=== PATIENT | female | born 1975 ===

== ENCOUNTER 2024-09-14 10:12 | Emergency (ER) | payer BC, SELFPAY ==
--- NOTE | ~2024-09-14 | US_ITS ---
EXAMINATION: US PELVIS TRANSABDOMINAL AND TRANSVAGINAL HISTORY: lower abd pain COMPARISON: There are no prior studies for comparison. TECHNIQUE: Transabdominal and endovaginal real-time 2D francisco-scale ultrasound was performed. Color and pulsed Doppler evaluation of the bilateral ovarian arteries and veins was performed. FINDINGS: Uterus: The uterus is normal in size, measuring 9.1 x 5.3 x 7.2 cm. Myometrium has a normal echotexture. No fibroids are identified. Endometrium: The endometrial stripe measures 7 mm in thickness. Nabothian cysts are seen in the cervix. Right ovary: The right ovary measures 5.1 x 2.8 x 2.7 cm. Multiple follicles are noted, the largest of which measures 2.8 x 2.0 x 2.6 cm. Left ovary: The left ovary measures 4.4 x 2.1 x 3.1 cm. Multiple follicles are noted, the largest of which measures 2.2 x 1.9 x 2.7 cm. Normal color and pulse Doppler spectral waveforms are noted in the bilateral ovarian arteries and veins. Pelvic fluid: none. US/US pelvic and transvaginal IMPRESSION: Follicles are noted bilaterally. Normal vascular flow is seen to both ovaries. Electronically signed by: Mahamed Josue MD 09/14/2024 03:38 PM EDT
--- NOTE | ~2024-09-14 | CT_ITS ---
EXAMINATION: CT ABDOMEN PELVIS WITH IV CONTRAST HISTORY: white count, vomiting, lower abd pain COMPARISON: There are no prior studies for comparison. TECHNIQUE: CT scan of the abdomen and pelvis was performed following administration of 85 mL Omnipaque 350 using standard departmental protocol. Coronal and sagittal reformatted images were generated and reviewed. Oral contrast material was not administered at the request of the referring physician. This CT exam was performed with one or more of the following dose reduction techniques: automated exposure control, adjustment of the mA and/or kV according to patient size, use of iterative reconstruction technique. DLP: 698 mGy-cm FINDINGS: LOWER CHEST: The visualized lung bases are clear. There is no pleural effusion. CARDIOVASCULATURE: The heart is normal in size. There is no pericardial effusion. LIVER: The liver is normal in size and contour. No liver mass is identified. The hepatic and portal veins are patent. GALLBLADDER / BILE DUCTS: The gallbladder is surgically absent. There is no intra or extrahepatic biliary ductal dilatation. SPLEEN: The spleen is normal in size. No focal splenic lesion is identified. PANCREAS: The pancreas is unremarkable in appearance. ADRENAL GLANDS: Within normal limits. KIDNEYS/RETROPERITONEUM: No renal calculi are identified. There is no hydronephrosis. No renal masses are identified. LYMPH NODES: No abdominal or pelvic lymphadenopathy. VASCULATURE: The abdominal aorta is normal in caliber. MESENTERY/PERITONEUM: No free fluid. No masses. There is no free intraperitoneal gas. STOMACH: There is a moderate hiatal hernia. The remainder of the stomach is collapsed. SMALL BOWEL: The small bowel is normal in caliber. COLON: The ascending, transverse, and proximal descending colon are collapsed, which may explain mild wall thickening. There is diverticulosis of the distal descending and sigmoid colon, without evidence of diverticulitis. APPENDIX: Normal. URINARY BLADDER/PELVIC ORGANS: The urinary bladder is unremarkable. The uterus is unremarkable. There is a 4.2 x 2.2 cm right ovarian cyst and a 3.1 x 2.6 cm left ovarian cyst. BONES / SOFT TISSUES: There is degenerative disc disease at L4-5 and L5-S1. There is slight spondylolisthesis of L4 and L5. The patient is status post fusion of the left sacroiliac joint. CT/CT abdomen pelvis w IV con IMPRESSION: 1. Moderate hiatal hernia. 2. The ascending, transverse, and proximal descending colon are collapsed, which may explain mild wall thickening. Colitis is not entirely excluded. 3. Diverticulosis of the distal descending and sigmoid colon, without evidence of diverticulitis. 4. Bilateral ovarian cysts as described. This could be further evaluated with ultrasound. Electronically signed by: Mahamed Josue MD 09/14/2024 01:55 PM EDT
--- NOTE | ~2024-09-14 | US_ITS ---
EXAMINATION: US PELVIS TRANSABDOMINAL AND TRANSVAGINAL HISTORY: lower abd pain COMPARISON: There are no prior studies for comparison. TECHNIQUE: Transabdominal and endovaginal real-time 2D francisco-scale ultrasound was performed. Color and pulsed Doppler evaluation of the bilateral ovarian arteries and veins was performed. FINDINGS: Uterus: The uterus is normal in size, measuring 9.1 x 5.3 x 7.2 cm. Myometrium has a normal echotexture. No fibroids are identified. Endometrium: The endometrial stripe measures 7 mm in thickness. Nabothian cysts are seen in the cervix. Right ovary: The right ovary measures 5.1 x 2.8 x 2.7 cm. Multiple follicles are noted, the largest of which measures 2.8 x 2.0 x 2.6 cm. Left ovary: The left ovary measures 4.4 x 2.1 x 3.1 cm. Multiple follicles are noted, the largest of which measures 2.2 x 1.9 x 2.7 cm. Normal color and pulse Doppler spectral waveforms are noted in the bilateral ovarian arteries and veins. Pelvic fluid: none. US/US pelvic ovarian doppler IMPRESSION: Follicles are noted bilaterally. Normal vascular flow is seen to both ovaries. Electronically signed by: Mahamed Josue MD 09/14/2024 03:38 PM EDT
[2024-09-14 10:26] VITALS: BP 148/91; PULSE 64; O2SAT 100
[2024-09-14 10:31] VITALS: BP 145/80; PULSE 56; RESP 16; TEMP 36.4; O2SAT 100; BMI 36.3
--- NOTE | 2024-09-14 11:21 | ED_ITS ---
HPI - Abdominal Pain General Chief Complaint: Abdominal Pain Stated Complaint: NAUSEA,VOMITING X1 DAY PER EMS Time Seen by Provider: 09/14/24 10:39 Source: patient and EMS Mode of arrival: EMS Limitations: no limitations History of Present Illness ED Provider: TATIANA MEDINA PA-C HPI narrative: 49 year old female presents to the ED today for evaluation of nausea, vomiting, diarrhea, and lower abdominal pain which began last night shortly after eating a slice of pizza. She states she was traveling down to [place] today with her daughter to purchase a pair shoes when she began vomiting in the car. Her daughter called EMS. Admits to bilateral lower abdominal pain without radiation with associated nonbloody diarrhea. Reports multiple episodes of vomiting en route to ED today. No known sick contacts. She is status post cholecystectomy in June of this year at [facility] in [place]. Other pertinent surgical hx includes section x2. No other abdominal surgeries. Denies history of renal stones or known diverticulitis. Denies any marijuana use. No recent antibiotics. No recent travel outside [place]. She is currently on her menstrual period. Denies urinary symptoms or flank pain. Denies fever, chills, chest pain, palpitations, SOB, constipation, diarrhea. Patient was administered zofran + IVF by EMS en route to ED. Continues to endorse nausea with bilious emesis noted in bag. Actively retching, appears diaphoretic. Related Data Previous Rx's ?Medication ?Instructions ?Recorded ciprofloxacin HCl 500 mg tablet 500 mg PO Q12H 7 days #14 tabs 09/14/24 diphenhydramine HCl 25 mg capsule 25 mg PO Q6-8H PRN nausea and 09/14/24 (Benadryl) vomiting #10 caps metoclopramide HCl 10 mg tablet 10 mg PO Q6H PRN nausea and 09/14/24 (Reglan) vomiting #10 tabs metronidazole 500 mg tablet 500 mg PO BID 7 days #14 tabs 09/14/24 Allergies Allergy/AdvReac Type Severity Reaction Status Date / Time No Known Allergies Allergy Verified 09/14/24 10:36 Review of Systems Review of Systems Yes all other systems are reviewed and are negative PMFSH Past Medical History Attestation statement: The following information was validated with the patient. Source: old records reviewed and nursing notes reviewed Social History Social History Substance Use Type: Marijuana Physical Exam ED Vital Signs: Vital Signs - 24 hr 09/14/24 10:31 09/14/24 12:30 09/14/24 15:34 Temperature 97.5 F Pulse Rate 56 49 L 77 Respiratory Rate 16 16 18 Blood Pressure 145/80 H 125/72 119/70 Pulse Oximetry 100 97 99 Oxygen Delivery Method Room Air Room Air Room Air 09/14/24 16:35 09/14/24 16:36 Temperature 98.1 F 98.1 F Pulse Rate 76 76 Respiratory Rate 18 18 Blood Pressure 109/77 109/77 Pulse Oximetry 99 99 Oxygen Delivery Method Room Air Room Air BMI result Body Mass Index 36.3 hypertensive, afebrile General: pale, diaphoretic, retching Skin: Warm, dry, intact. No rashes or lesions. Head: Normocephalic, atraumatic. EENT: Hearing is intact b/l. Conjunctiva clear. Sclera is anicteric. PERRLA. EOM intact. Moist mucous membranes.? Neck: Supple without LAD Cardiac: Chest wall symmetric. RRR Lungs: Normal respiratory effort without accessory muscle use. CTA bilaterally Abdomen: obese abdomen, soft, nondistended, diffusely ttp more-so to the lower abdomen. no rebound or guarding. active bs x4. no cvat b/l. rectal and pelvic exam deferred. Ext: Upper and lower extremities atraumatic, without tenderness, deformity, swelling or erythema Neuro: AOx3. Normal speech. Ambulating with steady gait. Course Course Course Narrative: 1601 -- CBC with leukocytosis to 15.4 with left shift. No anemia. H&H stable. Chemistry without acute electrolyte abnormality requiring intervention. No JLUIS. Random glucose 117. Liver function WNL. Lipase WNL. Beta HCG undetectable. Urine with moderate amount of blood and RBCs, likely secondary to patient's current menstrual period. No urinary tract infection. Negative COVID, flu, RSV. CT abdomen/pelvis showing moderate hiatal hernia. Ascending/transverse/proximal descending colon are collapsed which may explain mild wall thickening, can not completely exclude colitis. There is diverticulosis of the distal descending and sigmoid colon without evidence of diverticulitis. > requested/ reviewed records from [facility] in [place]. patient underwent elective cholecystectomy for pain/ N/V that appeared out of proportion to work ups. has had continued sx since surgery with unremarkable work ups. > on re-evaluation, patient reports significant improvement in nausea with haldol. abd pain has improved to 4/10. vitals have stablized. she appears well. tolerating PO. will discharge home with abx. Medical Decision Making Medical Decision Making [facility] Narrative: 49 year old female presents to the ED today for evaluation of nausea, vomiting, diarrhea, and lower abdominal pain which began last night shortly after eating a slice of pizza. Patient initially hypertensive, vitals otherwise WNL. On arrival, ill-appearing, diaphoretic and pale. Actively retching with noted bilious emesis in bag. on abdominal exam, obese abdomen, soft, nondistended, diffusely ttp more-so to the lower abdomen. no rebound or guarding. active bs x4. no cvat b/l. rectal and pelvic exam deferred. Differential diagnoses: appendicitis, diverticulitis, diverticulosis, UTI, IUP, constipation Abdominal exam without peritoneal signs. No evidence of acute abdomen at this time. Well appearing. Low suspicion for acute hepatobiliary disease (including acute cholecystitis), acute infectious processes (pneumonia, hepatitis, pyelonephritis, PID, TOA), vascular catastrophe, bowel obstruction or viscus perforation, ovarian cyst/ rupture/ torsion, ectopic. Presentation not consistent with other acute, emergent causes of abdominal pain at this time. Plan: labs, UA, CT AP, pain control, fluids, serial reassessment Differential Diagnosis Differential Diagnoses: The differential diagnosis associated with the presentation includes as above. Admission/Observation not indicated Lab Data [facility] Lab Attestation statement: I reviewed the patient's lab results. As above 09/14/24 11:30 09/14/24 11:30 Labs: Lab Results 09/14/24 09/14/24 Range/Units 11:30 15:36 WBC 15.4 H (4.8-10.8) X10*3/uL RBC 4.52 (4.20-5.50) X10*6/uL Hgb 12.8 (12.0-16.0) g/dl Hct 37.0 (37.0-47.0) % MCV 81.9 (80.0-98.0) fL MCH 28.3 (27.0-33.0) pg MCHC 34.6 (31.0-35.0) g/dl RDW 15.0 (11.0-16.0) % Plt Count 393 (160-400) X10*3/uL MPV 12.7 H (9.4-12.3) fL Immature Gran % (Auto) 0.4 (0.0-0.4) % Neut % (Auto) 89.9 H (45-73) % Lymph % (Auto) 6.2 L (20-40) % Winn % (Auto) 2.9 (2-11) % Eos % (Auto) 0.4 (0-4) % Baso % (Auto) 0.2 (0-2) % Lymph # (Auto) 1.0 L (1.2-4.9) X10*3/uL Winn # (Auto) 0.5 (0.1-1.2) X10*3/uL Eos # (Auto) 0.1 (0.0-0.4) X10*3/uL Baso # (Auto) 0.0 (0.0-0.2) X10*3/uL Abs Immat Gran (auto) 0.06 H (0.00-0.03) X10*3/uL Absolute Neuts (auto) 13.9 H (2.0-8.3) x10*3/uL Absolute Nucleated RBC 0.000 (0.0-0.012) X10*3/uL Nucleated RBC % (auto) 0.0 (0.0-0.2) /100WBC Sodium 141 (135-145) mmol/L Potassium 3.8 (3.3-5.1) mmol/L Chloride 105 (96-108) mmol/L Carbon Dioxide 22 (22-29) mmol/L Anion Gap 18 (12-20) BUN 9 (9-16) mg/dL Creatinine 0.69 (0.5-1.4) mg/dL Estim Creat Clear Calc 113.3 Estimated GFR > 60 Random Glucose 117 H (60-115) mg/dL Calcium 9.5 (8.4-10.2) mg/dL Magnesium 1.6 (1.6-2.6) mg/dL Total Bilirubin 0.6 (0.0-1.0) mg/dL AST 29 (5-31) U/L ALT 45 H (0-31) U/L Alkaline Phosphatase 112 (39-117) U/L Total Protein 7.4 (6.5-8.0) g/dL Albumin 4.4 (3.5-5.0) g/dL Lipase 11 (8-78) U/L Beta HCG, Quant < 2 mIU/mL Urine Color Yellow Urine Appearance Clear Urine pH 6.0 (5.0-9.0) Ur Specific [place] >= 1.030 H (1.005-1.025) Urine Protein Negative (Neg-Trace) mg/dL Urine Glucose (UA) Negative (Negative) mg/dL Urine Ketones 80 (Negative) mg/dL Urine Blood Moderate (2+) H (Negative) Urine Nitrite Negative (Negative) Ur Leukocyte Esterase Negative (Negative) Urine RBC 3-5 H (0-2) /HPF Urine WBC 0-5 (0-5) /HPF Ur Squamous Epith Cells 0-2 (0-2) /HPF Urine Bacteria None Seen (None Seen) Hyaline Casts 0-2 (0-2) /LPF Influenza Type A (PCR) NEGATIVE (Negative) Influenza Type B (PCR) NEGATIVE (Negative) RSV RNA Qual (PCR) NEGATIVE (Negative) SARS-CoV-2 RNA (RT-PCR) NEGATIVE (Negative) Independent Interpretation I performed an independent interpretation of an: Ultrasound and CT Scan Interpretation: CT abdomen/pelvis without evidence of bowel obstruction Pelvic ultrasound without evidence of torsion, good flow to both ovaries Radiology Impression Discussion of test interpretation with radiology: I have reviewed the radiologist's reading. Radiologist Impression: Procedure(s): US pelvic and transvaginal Accession Number(s): [id number] cc: Physician,Unknown ; Tatiana Medina~ EXAMINATION: US PELVIS TRANSABDOMINAL AND TRANSVAGINAL HISTORY: lower abd pain COMPARISON: There are no prior studies for comparison. TECHNIQUE: Transabdominal and endovaginal real-time 2D francisco-scale ultrasound was performed. Color and pulsed Doppler evaluation of the bilateral ovarian arteries and veins was performed. FINDINGS: Uterus: The uterus is normal in size, measuring 9.1 x 5.3 x 7.2 cm. Myometrium has a normal echotexture. No fibroids are identified. Endometrium: The endometrial stripe measures 7 mm in thickness. Nabothian cysts are seen in the cervix. Right ovary: The right ovary measures 5.1 x 2.8 x 2.7 cm. Multiple follicles are noted, the largest of which measures 2.8 x 2.0 x 2.6 cm. Left ovary: The left ovary measures 4.4 x 2.1 x 3.1 cm. Multiple follicles are noted, the largest of which measures 2.2 x 1.9 x 2.7 cm. Normal color and pulse Doppler spectral waveforms are noted in the bilateral ovarian arteries and veins. Pelvic fluid: none. US/US pelvic and transvaginal IMPRESSION: Follicles are noted bilaterally. Normal vascular flow is seen to both ovaries. Procedure(s): CT abdomen pelvis w IV con Accession Number(s): [id number] cc: Physician,Unknown ; Tatiana Medina~ Report Number: [id number]: Total DLP = 698.00 mGy-cm EXAMINATION: CT ABDOMEN PELVIS WITH IV CONTRAST HISTORY: white count, vomiting, lower abd pain COMPARISON: There are no prior studies for comparison. TECHNIQUE: CT scan of the abdomen and pelvis was performed following administration of 85 mL Omnipaque 350 using standard departmental protocol. Coronal and sagittal reformatted images were generated and reviewed. Oral contrast material was not administered at the request of the referring physician. This CT exam was performed with one or more of the following dose reduction techniques: automated exposure control, adjustment of the mA and/or kV according to patient size, use of iterative reconstruction technique. DLP: 698 mGy-cm FINDINGS: LOWER CHEST: The visualized lung bases are clear. There is no pleural effusion. CARDIOVASCULATURE: The heart is normal in size. There is no pericardial effusion. LIVER: The liver is normal in size and contour. No liver mass is identified. The hepatic and portal veins are patent. GALLBLADDER / BILE DUCTS: The gallbladder is surgically absent. There is no intra or extrahepatic biliary ductal dilatation. SPLEEN: The spleen is normal in size. No focal splenic lesion is identified. PANCREAS: The pancreas is unremarkable in appearance. ADRENAL GLANDS: Within normal limits. KIDNEYS/RETROPERITONEUM: No renal calculi are identified. There is no hydronephrosis. No renal masses are identified. LYMPH NODES: No abdominal or pelvic lymphadenopathy. VASCULATURE: The abdominal aorta is normal in caliber. MESENTERY/PERITONEUM: No free fluid. No masses. There is no free intraperitoneal gas. STOMACH: There is a moderate hiatal hernia. The remainder of the stomach is collapsed. SMALL BOWEL: The small bowel is normal in caliber. COLON: The ascending, transverse, and proximal descending colon are collapsed, which may explain mild wall thickening. There is diverticulosis of the distal descending and sigmoid colon, without evidence of diverticulitis. APPENDIX: Normal. URINARY BLADDER/PELVIC ORGANS: The urinary bladder is unremarkable. The uterus is unremarkable. There is a 4.2 x 2.2 cm right ovarian cyst and a 3.1 x 2.6 cm left ovarian cyst. BONES / SOFT TISSUES: There is degenerative disc disease at L4-5 and L5-S1. There is slight spondylolisthesis of L4 and L5. The patient is status post fusion of the left sacroiliac joint. CT/CT abdomen pelvis w IV con IMPRESSION: 1. Moderate hiatal hernia. 2. The ascending, transverse, and proximal descending colon are collapsed, which may explain mild wall thickening. Colitis is not entirely excluded. 3. Diverticulosis of the distal descending and sigmoid colon, without evidence of diverticulitis. 4. Bilateral ovarian cysts as described. This could be further evaluated with ultrasound. Independent Historian Clinical information obtained from an independent historian. History obtained from or confirmed by: Spouse () and EMS External Record Review External record reviewed: Outside ED record ([facility] surgery) Prescription Management I considered prescription management with: Pain Medication, Antibiotic (cipro/flagyl) and Other (reglan/benadryl) Social Determinants Patient?s care significantly limited by Social Determinants of Health including: Other Social Determinant of Health Medications Administered Discontinued Medications Generic Name Dose Route Start Last Admin Trade Name Freq PRN Reason Stop Dose Admin Diazepam 5 mg 09/14/24 12:36 09/14/24 12:47 Diazepam 10 Mg/2 Ml Cartridge IVPUSH 09/14/24 12:37 5 mg STAT STA Administration Diphenhydramine HCl 25 mg 09/14/24 11:07 09/14/24 11:35 Diphenhydramine Hcl 50 Mg/Ml Vial IVPUSH 09/14/24 11:08 25 mg ONCE ONE Administration Haloperidol Lactate 5 mg 09/14/24 13:52 09/14/24 13:58 Haloperidol Lactate 5 Mg/Ml Vial IVPUSH 09/14/24 13:53 5 mg STAT ONE Administration Sodium Chloride 1,000 mls @ 999 mls/hr 09/14/24 11:30 09/14/24 14:40 Ns IV 09/14/24 12:30 Infused .Q1H1M ANGEL Infusion Iohexol 100 ml 09/14/24 13:28 09/14/24 13:28 Iohexol 350 Mg/Ml 100 Ml Infus..Btl IV 09/14/24 13:29 85 ml ONCE ONE Administration Metoclopramide HCl 10 mg 09/14/24 11:07 09/14/24 11:35 Metoclopramide Hcl 10 Mg/2 Ml Vial IVPUSH 09/14/24 11:08 10 mg ONCE ONE Administration Morphine Sulfate 4 mg 09/14/24 11:08 09/14/24 11:35 Morphine Sulfate 4 Mg/Ml Cartridge IVPUSH 09/14/24 11:09 4 mg ONCE ONE Administration Protocol Critical Care Time Critical Care Time Critical Care Time: Yes Total Critical Care Time: 32 Attestation: Critical care time in the amount of 32 minutes has been provided to the patient in terms of direct patient care, frequent reevaluation, review and interpretation of medical data and results, and management of potentially life- threatening conditions. This is all outside of any medical procedures. Discharge Plan Discharge Clinical Impression: Colitis Patient Disposition: Home, Self-Care Instructions: Colitis (ED) Additional Instructions: You were evaluated in the ED today for nausea, vomiting and abdominal pain. Your blood work is reassuring. Your urine does not demonstrate infection. You tested negative for COVID, flu, RSV. The ultrasound of your pelvis is normal. The CT scan of your abdomen shows probable colitis. see home care instructions. Your symptoms have improved with medications today. I am treating you with 2 different antibiotics: ciprofloxacin and metronidazole. Take both of these for the next 7 days. I am also sending Reglan + Benadryl to your pharmacy. Take these as needed for nausea or vomiting Follow up with your primary care provider. Return with any new or worsening symptoms. In the case of an emergency call 911. Prescriptions: New metronidazole 500 mg tablet 500 mg PO BID 7 Days Qty: 14 0RF ciprofloxacin HCl 500 mg tablet 500 mg PO Q12H 7 Days Qty: 14 0RF metoclopramide HCl [Reglan] 10 mg tablet 10 mg PO Q6H PRN (Reason: nausea and vomiting) Qty: 10 0RF diphenhydramine HCl [Benadryl] 25 mg capsule 25 mg PO Q6-8H PRN (Reason: nausea and vomiting) Qty: 10 0RF Referrals: Physician,Unknown J [Primary Care Provider] - Stand Alone Forms: Work/School Release Interventions: ED Discharge Assessment Last Done: 09/14/24 16:36 Discharge Date/Time: 09/14/24 16:39 Print Language: Thai
[2024-09-14] MEDS: 0.9 % Sodium Chloride 1,000 ML 999 ML IV (11:35)
[2024-09-14] MEDS: diphenhydrAMINE HCL 50 MG/ML VIAL 25 MG IVPUSH (11:35)
[2024-09-14] MEDS: Metoclopramide HCl 10 MG/2 ML VIAL IVPUSH (11:35)
[2024-09-14] MEDS: Morphine Sulfate 4 MG/ML CARTRIDGE IVPUSH (11:35)
[2024-09-14 11:46] LABS: Basophils Percent Auto 0.2 % (0-2); Eosinophils Absolute Auto 0.1 X10*3/uL (0.0-0.4); Eosinophils Percent Auto 0.4 % (0-4); Hemoglobin 12.8 g/dl (12.0-16.0); Imm Gran Abs Auto 0.06 X10*3/uL (0.00-0.03); Imm Gran Pct Auto 0.4 % (0.0-0.4); Lymphocytes Percent Auto 6.2 % (20-40); Mean Corpuscular HGB Conc 34.6 g/dl (31.0-35.0); Mean Corpuscular Hemoglobin 28.3 pg (27.0-33.0); Mean Corpuscular Volume 81.9 fL (80.0-98.0); Mean Platelet Volume 12.7 fL (9.4-12.3); Monocytes Absolute Auto 0.5 X10*3/uL (0.1-1.2); Monocytes Percent Auto 2.9 % (2-11); Neutrophils Absolute Auto 13.9 x10*3/uL (2.0-8.3); Neutrophils Percent Auto 89.9 % (45-73); Red Blood Count 4.52 X10*6/uL (4.20-5.50)
[2024-09-14 11:47] LABS: Platelet Count 393 X10*3/uL (160-400); White Blood Count 15.4 X10*3/uL (4.8-10.8)
[2024-09-14 11:57] LABS: Alanine Aminotransferase 45 U/L (0-31); Albumin Level 4.4 g/dL (3.5-5.0); Alkaline Phosphatase 112 U/L (39-117); Anion Gap 18 (12-20); Aspartate Amino Transferase 29 U/L (5-31); Bilirubin Total 0.6 mg/dL (0.0-1.0); Blood Urea Nitrogen 9 mg/dL (9-16); Calcium 9.5 mg/dL (8.4-10.2); Carbon Dioxide 22 mmol/L (22-29); Chloride 105 mmol/L (96-108); Creatinine Clr Calc Pharmacy 113.3; Estimated Glomerular Filt Rate > 60; Glucose Random 117 mg/dL (60-115); Lipase 11 U/L (8-78); Magnesium 1.6 mg/dL (1.6-2.6); Potassium 3.8 mmol/L (3.3-5.1); Sodium 141 mmol/L (135-145); Total Protein 7.4 g/dL (6.5-8.0)
[2024-09-14 11:58] LABS: HCG Quantitative < 2 mIU/mL
[2024-09-14 12:14] LABS: Influenza A PCR NEGATIVE (Negative); Influenza B PCR NEGATIVE (Negative); Resp Syncy Virus RNA Qual PCR NEGATIVE (Negative); SARS COV2 PCR INHOUSE NEGATIVE (Negative)
--- OUTSIDE RECORDS SUMMARY | 2024-09-14 12:25 | XMS_ITS | Clinical Summary ---
Author Organization [facility] Address [facility] [place] [address] Care Team Providers Care Nanosystems Engineer Name Role Phone Unknown Primary Care Provider Unavailabl e Allergies No known active allergies Medications Medication Sig Dispensed Refills Start Date End Date Status oxyCODONE (ROXICODONE) 5 mg immediate release tablet Take 15 mg by mouth every 6 hours as needed. Active citalopram (CELEXA) 20 mg tablet Take 20 mg by mouth daily. Active hydrOXYzine (ATARAX) 25 mg Tablet Take 25 mg by mouth every 6 hours as needed for Itching. Active sertraline (ZOLOFT) 100 mg Tablet Take 2 tablets by mouth daily. 60 tablet 11/26/2016 Active prazosin (MINIPRESS) 1 mg Capsule Take 1 capsule by mouth nightly. 30 capsule 11/26/2016 Active Active Problems Problem Noted Date Diagnosed Date Transient alteration of awareness 11/26/2016 Vertigo 11/24/2016 Displacement of lumbar inter vertebral disc without myelopathy 02/06/2014 Acquired spondylolisthesis 10/19/2013 Encounters Date Type Department Care Team Description 07/12/2024 Interpretation Only [address] [phone] Unknown 07/11/2024 Interpretation Only [address] [phone] Unknown 07/11/2024 Interpretation Only [address] [phone] Steven Henry, COGNOS 07/11/2024 Interpretation Only [address] [phone] Unknown 07/10/2024 Interpretation Only [address] [phone] Heather Roy MD 07/04/2024 Transcribe Orders eD Incoming Referrals [phone] Kasie Galdamez APRN Daytime sleepiness; Snoring; Insomnia, unspecified type; Restless legs from Last 3 Months Immunizations Name Administration Dates Next Due Influenza Unspecified Formulation 03/07/2014, Rubella Vaccine (MeruVax II)LIVE 004(Deferred: Immune by titer - [facility] - Rubella; DEFERRED; immune per lab 01/23/2004; recorded on 05/06/2009 2:23:55 PM;) Tdap (Adacel, Boostrix) 03/07/2014 Family History Medical History Relation Comments Substance Use Disorder Father Coronary Artery Disease Maternal Grandfather Depression Mother Depression Sister Relation Status Comments Father Maternal Grandfather Mother Sister Social History Tobacco Use Types Packs/Day Years Used Date Smoking Tobacco: Never Smokeless Tobacco: Never Alcohol Use Standard Drinks/Week Comments No 0 (1 standard drink = 0.6 oz pur e alcohol) Sex and Gender Information Value Date Recorded Sex Assigned at Not on file Gender Identity Not on file Sexual Orientation Not on file Last Filed Vital Signs Vital Sign Reading Time Taken Comments Blood Pressure 134/88 11/26/2016 12:00 PM EDT Pulse 83 11/26/2016 12:00 PM EDT Temperature 36.6 ??C (97.9 ??F) 11/26/2016 12:00 PM E DT Respiratory Rate 18 11/26/2016 12:00 PM EDT Oxygen Saturation 98% 11/26/2016 12:00 PM EDT Inhaled Oxygen Concentration - - Weight 65 kg (143 lb 4.8 oz) 11/24/2016 9:07 PM EDT Height 162.6 cm (5' 4 ) 11/24/2016 9:07 PM EDT Body Mass Index 24.6 11/24/2016 9:07 PM EDT Plan of Treatment Health Maintenance Due Date Last Done Comments CT Colonography 1977 Colonoscopy 1977 Colorectal Cancer Screening 1977 FIT DNA 1977 FIT 1977 Sigmoidoscopy (10 year) with FIT yearly 1977 Sigmoidoscopy 1977 Hepatitis C Screening 1995 Hepatitis B vaccine (0-59 yr s) and Risk (1) 02/16/1996 HPV test 2007 PAP Smear 2007 Breast Cancer Share Decision Needed 2017 Breast Cancer screening 2017 Covid-19 Vaccine ( - season) 2024 Influenza (Flu) vaccine (1 o f 1 - Influenza standard series) 01/16/2024 03/07/2014, 04/30/2004 Tetanus/Diphtheria/Pertussis Vaccines (2 - Td or Tdap) 03/07/2024 03/07/2014 HIV screen Completed 01/23/2004 Procedures Procedure Name Priority Date/Time Associated Diagnosis Comments NM BILIARY TRACT IMAGING STAT 07/12/2024 1:04 PM EST US ABDOMEN LIMITED STAT 07/11/2024 11 :[address] ABDOMEN AND PELVIS W CONTRAST STAT 07/10/2024 6:03 PM EST HIV SCREEN, 4TH GENERATION ([facility])PERFORMAB LE Routine 01/23/2004 11:54 AM EDT from Last 3 Months or Most Recently Relevant to Health Maintenance Results * NM Biliary tract Imaging (07/12/2024 1:04 PM EST) PT CLASS I RAD ADMITDTTM [id number] RAD PT RAD INFO [id number]^DITTEN BIR^JAYANT RAD EXAM DESC NMBILI^NM HEPATOBILIARY IMAGING^RIS [facility] WORKSTATION ID [id number] RAD Anatomical Region Laterality Modality Other Impressions 07/12/2024 2:15 PM EST No acute cholecystitis. I have personally reviewed the image(s) and the resident's interpretation and agree with the findings, Roe Rich MD at 07/12/2024 2:15 PM Thank you for letting us participate in the care of this patient. ??If you are a health care provider and have any questions regarding this report, please contact the number below. ??For patients who have questions please contact the health skin care consultant that requested your imaging first. ? Narrative 07/12/2024 2:15 PM EST vEXAMINATION: NM HEPATOBILIARY IMAGING CLINICAL HISTORY: NM HEPATOBILIARY - Reason: ??ABD PAIN - HX: TECHNIQUE: Technetium-99m mebrofenin was administered intravenously in a dose of 5.6 mCi. Images of the abdomen were obtained immediately thereafter at one minute intervals for 60 minutes in the anterior projection. COMPARISON: Ultrasound abdomen 07/11/2024 FINDINGS: Planar imaging at 60 minutes demonstrate activity within the liver, bile ducts and small bowel. There is visualization of radiotracer within the gallbladder and biliary tree by 12 minutes. Procedure Note Roe Rich MD - 07/12/2024 vEXAMINATION: NM HEPATOBILIARY IMAGING CLINICAL HISTORY: NM HEPATOBILIARY - Reason: ABD PAIN - HX: TECHNIQUE: Technetium-99m mebrofenin was administered intravenously in adose of 5.6 mCi. Images of the abdomen were obtained immediately thereafter atone minute intervals for 60 minutes in the anterior projection. COMPARISON: Ultrasound abdomen 07/11/2024 FINDINGS: Planar imaging at 60 minutes demonstrate activity within the liver, bileducts and small bowel. There is visualization of radiotracer within the gallbladder and biliarytree by 12 minutes. IMPRESSION No acute cholecystitis. I have personally reviewed the image(s) and the resident's interpretationand agree with the findings, Roe Rich MD at 07/12/2024 2:15 PM Thank you for letting us participate in the care of this patient. If youare a health care provider and have any questions regarding this report,please contact the number below. For patients who have questions please contactthe health skin care consultant that requested your imaging first. Unknown IMG NM ORDERABLES * US Abdomen Limited (07/11/2024 11:15 AM EST) PT CLASS I RAD ADMITDTTM [id number] RAD PT RAD INFO [id number]^HOLLAN D^STEVEN [facility] EXAM DESC UABDLIM^US ABD LIMITED^RIS [facility] WORKSTATION ID [id number] [facility] Anatomical Region Laterality Modality Abdomen Ultrasound Impressions 07/11/2024 11:28 AM EST Cholelithiasis without sonographic evidence of acute cholecystitis or biliary ductal dilatation. Thank you for letting us participate in the care of this patient. ??If you are a health care provider and have any questions regarding this report, please contact the number below. ??For patients who have questions please contact the health skin care consultant that requested your imaging first. ? Narrative 07/11/2024 11:28 AM EST EXAMINATION: US ABD LIMITED CLINICAL HISTORY: US ABD 1 ORGAN - REASON FOR ABDOMEN: ??CHOLELITHIASIS - Hx Abdominal pain, nausea, vomiting - Hx TECHNIQUE: Right upper quadrant ultrasound. COMPARISON: CT scan of the abdomen and pelvis 07/10/2024. FINDINGS: There are multiple stones in the gallbladder. The gallbladder wall is not thickened, the patient was not point tender scanning over the gallbladder and there is no pericholecystic fluid. Thus there is no sonographic evidence of acute cholecystitis. No biliary ductal dilatation. The patient was generally tender over the entire right upper quadrant and epigastric region. The liver is normal in size and echogenicity. No focal hepatic lesion is seen. The main portal vein is patent with normal directional flow. The right kidney and visualized portion of the pancreas are normal. Procedure Note Igor Rodriguez MD - 07/11/2024 EXAMINATION: US ABD LIMITED CLINICAL HISTORY: US ABD 1 ORGAN - REASON FOR ABDOMEN: CHOLELITHIASIS -Hx Abdominal pain, nausea, vomiting - Hx TECHNIQUE: Right upper quadrant ultrasound. COMPARISON: CT scan of the abdomen and pelvis 07/10/2024. FINDINGS: There are multiple stones in the gallbladder. The gallbladder wall isnot thickened, the patient was not point tender scanning over the gallbladderand there is no pericholecystic fluid. Thus there is no sonographic evidenceof acute cholecystitis. No biliary ductal dilatation. The patient wasgenerally tender over the entire right upper quadrant and epigastric region. The liver is normal in size and echogenicity. No focal hepatic lesion isseen. The main portal vein is patent with normal directional flow. The rightkidney and visualized portion of the pancreas are normal. IMPRESSION Cholelithiasis without sonographic evidence of acute cholecystitis orbiliary ductal dilatation. Thank you for letting us participate in the care of this patient. If youare a health care provider and have any questions regarding this report,please contact the number below. For patients who have questions please contactthe health skin care consultant that requested your imaging first. Steven Henry COGNOS IMG US GEN ORDER LASHANDA * CT Abdomen & Pelvis w Contrast (07/10/2024 6:03 PM EST) PT CLASS E RAD ADMITDTTM [id number] RAD PT [facility] INFO [id number]^RAFAEL^ HEATHER RAD EXAM DESC CTAPW^CT ABD PELVIS W^RIS [facility] WORKSTATION ID [id number] DH RAD Anatomical Region Laterality Modality Abdomen, Pelvis Computed Tomogra phy Impressions 07/10/2024 6:47 PM EST Cholelithiasis without CT findings for cholecystitis Thank you for letting us participate in the care of this patient. ??If you are a health care provider and have any questions regarding this report, please contact the number below. ??For patients who have questions please contact the health skin care consultant that requested your imaging first. ? Narrative 07/10/2024 6:47 PM EST EXAMINATION: CT ABD PELVIS W CLINICAL HISTORY: Abdominal Pain, RUQ and epigastric pain TECHNIQUE: Helical CT of the abdomen and pelvis following the intravenous administration of 100 mL of Omnipaque 350. Oral contrast was not administered. COMPARISON: 03/05/2018 FINDINGS: Lower chest: Small hiatus hernia Liver: Normal size and attenuation without lesions. Bile ducts: Nondilated. Gallbladder: Cholelithiasis. Nondistended gallbladder. No gallbladder wall thickening or pericholecystic inflammatory changes. Pancreas: Normal attenuation without ductal dilatation. Spleen: Normal. Adrenals: Normal. Kidneys: Enhance symmetrically. No hydronephrosis. Urinary Bladder: Normal. Vasculature: No abdominal aortic aneurysm. Lymph Nodes: No enlarged lymph nodes. Bowel: Diverticulosis without findings of diverticulitis. The appendix is normal. No dilated bowel. Peritoneum and retroperitoneum: No free fluid. No pneumoperitoneum. No loculated fluid collection or mesenteric inflammation. Abdominal wall: Normal. Reproductive organs: Normal. Osseous structures: Old lower left rib fractures. 2 screws transfix the left sacroiliac joint. Procedure Note Zeyad Rodriguez MD - 07/10/2024 EXAMINATION: CT ABD PELVIS W CLINICAL HISTORY: Abdominal Pain, RUQ and epigastric pain TECHNIQUE: Helical CT of the abdomen and pelvis following theintravenous administration of 100 mL of Omnipaque 350. Oral contrast was notadministered. COMPARISON: 03/05/2018 FINDINGS: Lower chest: Small hiatus hernia Liver: Normal size and attenuation without lesions. Bile ducts: Nondilated. Gallbladder: Cholelithiasis. Nondistended gallbladder. No gallbladderwall thickening or pericholecystic inflammatory changes. Pancreas: Normal attenuation without ductal dilatation. Spleen: Normal. Adrenals: Normal. Kidneys: Enhance symmetrically. No hydronephrosis. Urinary Bladder: Normal. Vasculature: No abdominal aortic aneurysm. Lymph Nodes: No enlarged lymph nodes. Bowel: Diverticulosis without findings of diverticulitis. The appendixis normal. No dilated bowel. Peritoneum and retroperitoneum: No free fluid. No pneumoperitoneum. Noloculated fluid collection or mesenteric inflammation. Abdominal wall: Normal. Reproductive organs: Normal. Osseous structures: Old lower left rib fractures. 2 screws transfix theleft sacroiliac joint. IMPRESSION Cholelithiasis without CT findings for cholecystitis Thank you for letting us participate in the care of this patient. If youare a health care provider and have any questions regarding this report,please contact the number below. For patients who have questions please contactthe health skin care consultant that requested your imaging first. Heather Roy MD IMG CT ORDERABLES * (ABNORMAL) HIV Antibody Rapid Test (01/23/2004 11:54 AM EDT) HIV Ab/Ag Rapid NON REAC(Exter nal Lab) NON REAC [facility] RESULT CONVERSION Comment: Sourced from Leticia Quintana Conversion 01/23/2004 11:5 4 AM EDT His Lilian Provider CHEMISTRY ORDERABL ES [facility] RESULT CONVERSION from Last 3 Months or Most Recently Relevant to Health Maintenance Advance Directives * Full Code (Latest Code Status on File) Date Activated Date Inactivated Comments 11/24/2016 9:17 PM 11/26/2016 8:06 PM Question Answer Comments Does patient have capacity to make decision: Yes Care Teams Nanosystems Engineer Relationship Specialty Start Date End Date Unknown None PCP - General 01/15/21
--- NOTE | 2024-09-14 12:27 | ECG_ITS ---
Test Reason : vomiting Blood Pressure : */* mmHG Vent. Rate : 47 BPM Atrial Rate : 47 BPM P-R Int : 140 ms QRS Dur : 66 ms QT Int : 462 ms P-R-T Axes : 29 4 23 degrees QTcB Int : 408 ms Sinus bradycardia with marked sinus arrhythmia Septal infarct , age undetermined Abnormal ECG No previous ECGs available Referred By: Tatiana Medina Electronically Signed By: Marin Reis
[2024-09-14 12:30] VITALS: BP 125/72; PULSE 49; RESP 16; O2SAT 97
[2024-09-14] MEDS: diazePAM 10 MG/2 ML CARTRIDGE 5 MG IVPUSH (12:47)
[2024-09-14] MEDS: iohexoL 350 MG/ML 100 ML INFUS..BTL IV (13:28)
[2024-09-14] MEDS: Haloperidol Lactate 5 MG/ML VIAL IVPUSH (13:58)
--- NOTE | 2024-09-14 14:34 | PC.NURSE ---
verbal nurse to nurse given to JOSE LUIS ramirez
[2024-09-14 15:34] VITALS: BP 119/70; PULSE 77; RESP 18; O2SAT 99
[2024-09-14 15:45] LABS: Appearance Urine Clear; Color Urine Yellow; Glucose Urine UA Negative (Negative); Leukocyte Esterase Urine Negative (Negative); Nitrite Urine Negative (Negative); Specific Gravity - Urine >= 1.030 (1.005-1.025); UMIC TRIGGER UACC YES; Urine Blood Moderate (2+) (Negative); Urine Ketones 80 mg/dL (Negative); Urine Protein Negative (Neg-Trace)
[2024-09-14 15:58] LABS: Bacteria Urine None Seen (None Seen); Hyaline Casts Urine 0-2 /LPF (0-2); Squamous Epithelial Cell Urine 0-2 /HPF (0-2); WBC Urine 0-5 /HPF (0-5)
[2024-09-14 16:35] VITALS: BP 109/77; PULSE 76; RESP 18; TEMP 36.7; O2SAT 99
[2024-09-14 16:36] VITALS: BP 109/77; PULSE 76; RESP 18; TEMP 36.7; O2SAT 99
== END 2024-09-14 16:39 | disposition home or self-care (01) ==
PROVIDERS: Physician Assistant Medical; Emergency Provider Emergency Medicine
DX: K52.9 Noninfective gastroenteritis and colitis, unspecified (principal); N83.202 Unspecified ovarian cyst, left side; N83.201 Unspecified ovarian cyst, right side; R00.1 Bradycardia, unspecified; I49.9 Cardiac arrhythmia, unspecified; R10.2 Pelvic and perineal pain; I49.8 Other specified cardiac arrhythmias; R10.30 Lower abdominal pain, unspecified; R11.2 Nausea with vomiting, unspecified; Z03.818 Encounter for observation for suspected exposure to other biological agents ruled out; Z79.899 Other long term (current) drug therapy
CPT/HCPCS: 0241U; 74177; 76830; 76856; 80053; 81001; 83690; 83735; 84702; 85025; 93005; 93975; 96361; 96374; 96375; 99285; J1200; J1630; J2270; J2765; J3360; Q9967

== ENCOUNTER → 2024-09-14 11:57 | Outpatient (BNV) | payer BC, SELFPAY | PROVIDERS: Emergency Provider Emergency Medicine; Visit Provider Radiology Diagnostic Radiology | DX: R10.30 Lower abdominal pain, unspecified (principal) | CPT/HCPCS: 74177; 76830; 76856; 93975 ==

== ENCOUNTER → 2024-09-14 12:27 | Outpatient (BNV) | payer BC, SELFPAY | PROVIDERS: Emergency Provider Emergency Medicine; Visit Provider Internal Medicine Cardiovascular Disease | DX: I49.9 Cardiac arrhythmia, unspecified (principal); R00.1 Bradycardia, unspecified | CPT/HCPCS: 93010 ==